=== PATIENT | female | born 1990 | race Caucasian/White ===

== ENCOUNTER → 2016-10-15 | Outpatient (CLI) | payer OTHER ==
[2016-10-15 21:17] LABS: Clam IgE <0.10 kU/L; Egg White IgE <0.10 kU/L; Peanut IgE <0.10 kU/L; Scallop IgE <0.10 kU/L; Soybean IgE <0.10 kU/L
[2016-10-16 13:49] LABS: Pork IgE Class CLASS 0
[2016-10-16 13:50] LABS: Banana IgE Class CLASS 0; Beef IgE <0.35 kU/L (<0.35); Beef IgE Class CLASS 0; Chicken IgE Class CLASS 0; Kiwi IgE <0.35 kU/L (<0.35); Kiwi IgE Class CLASS 0; Latex IgE Class CLASS 0; Yeast Bakers/Brew IgE <0.35 kU/L (<0.35); Yeast Bakers/Brew IgE Class CLASS 0
[2016-10-16 13:51] LABS: Avocado Class CLASS 0
[2016-10-19 12:42] LABS: Hazelnut IgG 2.3 mcg/mL (< 2.0)
[2016-10-22 13:21] LABS: Potato IgE <0.35 kU/L (<0.35); Potato IgE Class CLASS 0
[2016-10-22 13:22] LABS: Gluten IgE Class CLASS 0; Hazelnut IgE <0.35 kU/L (<0.35); Hazelnut IgE Class CLASS 0
== END | disposition home or self-care (01) ==
LOC: LABWHC1 14:16
PROVIDERS: ATTEND Otolaryngology
DX: J30.89 Other allergic rhinitis (principal)
CPT/HCPCS: 36415; 82785; 86001; 86003

== ENCOUNTER 2017-07-05 18:25 | Emergency (ER) | payer BC, OTHER ==
[2017-07-05 18:38] VITALS: BP 132/87; PULSE 96; RESP 18; TEMP 97.7
[2017-07-05] MEDS ORDERED: PROPARACAINE 0.5% OPHTH DROPS 15 ML BTL LEFT EYE STA (18:47)
[2017-07-05] MEDS ORDERED: TOBRAMYCIN 0.3% OPHTH DROPS 5 ML BTL LEFT EYE STA (19:12)
--- NOTE | 2017-07-05 19:12 | ED ---
Eye Problem HPI - General Chief complaint: Eye Problems Stated complaint: left eye pain Time Seen by Provider: 07/05/17 18:45 Source: patient Mode of arrival: ambulatory Limitations: no limitations - History of Present Illness Initial comments: 26-year-old female patient presents to the emergency department today for evaluation of left eye irritation and discomfort. Patient states that yesterday morning she started to have left eye redness and clear drainage. States she has felt like symptoms been scratching her eye. She states that when she woke this morning she did have green crusting over the eye that she had to wash off. She states that throughout the day today she'll occasionally feel like something scratching her eye however she constantly has irritation and a throbbing type feeling to the eye. She denies any fever or chills. Denies any upper respiratory symptoms. She states that her vision is mildly blurred on the left side. She denies any use of contact lenses. Patient denies any recent rash, fever, chills, shortness breath, chest pain, abdominal pain, nausea, vomiting, diarrhea, constipation, back pain, numbness, tingling, dizziness, weakness, hematuria, dysuria, urinary urgency, urinary frequency, headache, or any other complaints. - Related Data Home Medications Medication Instructions Recorded Confirmed Nitrofurantoin Macrocrystal 50 mg PO DAILY 05/28/15 07/05/17 [Macrodantin] Previous Rx's Medication Instructions Recorded traMADol HCl [Ultram] 50 mg PO Q6H PRN #20 tab 05/29/15 Allergies Allergy/AdvReac Type Severity Reaction Status Date / Time hazelnut Allergy Unknown Verified 07/05/17 18:39 sertraline [From Zoloft] Allergy Unknown Verified 07/05/17 18:38 Sulfa (Sulfonamide Allergy Rash/Hives Verified 07/05/17 18:38 Antibiotics) Review of Systems ROS Statement: Those systems with pertinent positive or pertinent negative responses have been documented in the HPI. ROS Other: All systems not noted in ROS Statement are negative. Past Medical History Past Medical History: No Reported History Additional Past Medical History / Comment(s): irregular heartbeat-PSVT, chronic migranes History of Any Multi-Drug Resistant Organisms: None Reported Past Surgical History: Tonsillectomy Additional Past Surgical History / Comment(s): wisdom Past Psychological History: No Psychological Hx Reported Smoking Status: Current every day smoker Past Alcohol Use History: Occasional Past Drug Use History: None Reported General Exam Limitations: no limitations General appearance: alert, in no apparent distress, other Eye exam: Present: PERRL, EOMI, conjunctival injection (left-sided conjunctival injection), other (Fluoroscein stain with Wood's lamp examination revealed no evidence for corneal abrasion or conjunctival abrasion. No evidence of foreign body with eversion of eyelid.). Absent: scleral icterus, periorbital swelling ENT exam: Present: normal exam, normal oropharynx Respiratory exam: Present: normal lung sounds bilaterally. Absent: respiratory distress, wheezes, rales, rhonchi, stridor Cardiovascular Exam: Present: regular rate, normal rhythm, normal heart sounds. Absent: systolic murmur, diastolic murmur, rubs, gallop, clicks Neurological exam: Present: alert, oriented X3, CN II-XII intact Psychiatric exam: Present: normal affect, normal mood Skin exam: Present: warm, dry, intact, normal color. Absent: rash Course Vital Signs 07/05/17 18:35 Temperature 97.7 F Pulse Rate 96 Respiratory 18 Rate Blood Pressure 132/87 O2 Sat by Pulse 100 Oximetry Medical Decision Making - Medical Decision Making 26-year-old female patient presented to the emergency department today with for evaluation of left eye irritation and redness. Did perform Wood's lamp examination with Fluoroscein stain which revealed no evidence for corneal abrasion or conjunctival abrasion. Patient did have improvement of symptoms with instillation of proparacaine. Eversion of eye lid did not reveal any evidence of foreign body or lesion. Patient symptoms are consistent with a conjunctivitis. We will treat her with tobramycin eyedrops to be administered 4 times daily to the left eye. She is instructed to follow-up with ophthalmology if her symptoms not improve over the next 1-2 days. She is instructed to return here immediately for any new, worsening, or concerning symptoms. She verbalizes understanding and agrees with this plan. Disposition Clinical Impression: Conjunctivitis Disposition: HOME SELF-CARE Condition: Good Instructions: Conjunctivitis (ED) Additional Instructions: Use antibiotic drops 1 drop to the left eye 4 times per day. Follow-up with ophthalmology for symptoms don't improve over the next 1-2 days. Return here immediately for any new, worsening, or concerning symptoms. Referrals: Javad Munoz DO [Primary Care Provider] - 1-2 days Time of Disposition: 19:12
== END 2017-07-05 19:27 | disposition home or self-care (01) ==
LOC: EC 18:25
DX: H10.9 Unspecified conjunctivitis (principal); F17.200 Nicotine dependence, unspecified, uncomplicated; Z88.2 Allergy status to sulfonamides; Z88.8 Allergy status to other drugs, medicaments and biological substances
CPT/HCPCS: 99283

== ENCOUNTER → 2017-08-06 | Outpatient (CLI) | payer BC ==
[2017-08-06 12:29] LABS: Basophils % (A) 0 %; CH 29.6; CHCM 31.7; Eosinophils # (A) 0.2 k/uL (0-0.7); Eosinophils % (A) 3 %; HCT 41.7 % (34.0-46.0); HDW 2.07; HGB 13.5 gm/dL (11.4-16.0); Luc # (Auto) 0.08; Luc % (Auto) 1; Lymphocytes # (A) 1.9 k/uL (1.0-4.8); Lymphocytes % (A) 31 %; MCH 30.3 pg (25.0-35.0); MCHC 32.3 g/dL (31.0-37.0); MCV 93.9 fL (80.0-100.0); Mean Platelet Volume 9.1; Monocytes # (A) 0.4 k/uL (0-1.0); Monocytes % (A) 6 %; Neutrophils # (A) 3.5 k/uL (1.3-7.7); Neutrophils % (A) 58 %; RBC 4.44 m/uL (3.80-5.40); RDW 13.9 % (11.5-15.5); WBC (Perox) 6.03
[2017-08-06 12:54] LABS: Calcium 10.6 mg/dL (8.4-10.2); Magnesium 1.9 mg/dL (1.6-2.3); Phosphorus 3.7 mg/dL (2.5-4.5)
== END | disposition home or self-care (01) ==
LOC: LABWHC1 11:31
PROVIDERS: ATTEND Psychiatry & Neurology Neurology
DX: R51 Headache (principal)
CPT/HCPCS: 36415; 82306; 82310; 82607; 82728; 83735; 84100; 84443; 85025

== ENCOUNTER 2022-12-29 10:41 | Emergency (ER) | payer BC ==
[2022-12-29 10:47] VITALS: RESP 18
[2022-12-29] MEDS ORDERED: SODIUM CHLORIDE 0.9% 1,000 ML IV ONE (11:45)
[2022-12-29 12:17] LABS: Basophils % (A) 0 %; Eosinophils # (A) 0.1 k/uL (0-0.7); Eosinophils % (A) 1 %; HCT 39.1 % (34.0-46.0); HGB 12.9 gm/dL (11.4-16.0); Lymphocytes % (A) 24 %; MCH 28.8 pg (25.0-35.0); MCHC 32.9 g/dL (31.0-37.0); MCV 87.5 fL (80.0-100.0); Mean Platelet Volume 8.2; Monocytes # (A) 0.3 k/uL (0-1.0); Monocytes % (A) 3 %; Neutrophils # (A) 5.8 k/uL (1.3-7.7); Neutrophils % (A) 70 %; Platelet Count 262 k/uL (150-450); RBC 4.47 m/uL (3.80-5.40); RDW 12.4 % (11.5-15.5); WBC 8.3 k/uL (3.8-10.6)
[2022-12-29 12:23] LABS: ALT 36 U/L (4-34); AST 27 U/L (14-36); African American GFR (CKD) >90 (>60 ml/min/1.73 sqM); Alkaline Phosphatase 56 U/L (38-126); Anion Gap 9 mmol/L; Blood Urea Nitrogen 13 mg/dL (7-17); Calcium 8.8 mg/dL (8.4-10.2); Carbon Dioxide 26 mmol/L (22-30); Chloride 103 mmol/L (98-107); Glucose 102 mg/dL (74-99); Non-African American GFR(CKD) >90 (>60 ml/min/1.73 sqM); Potassium 3.9 mmol/L (3.5-5.1); Sodium 138 mmol/L (137-145); Total Bilirubin 0.4 mg/dL (0.2-1.3); Total Protein 6.7 g/dL (6.3-8.2)
[2022-12-29 12:33] LABS: Appearance,Urine Turbid (Clear); Bacteria,Urine Many /hpf; Bilirubin,Urine Negative (Negative); Blood,Urine Large (Negative); Color,Urine Yellow; Glucose,Urine (UA) Negative (Negative); Ketones,Urine Negative (Negative); Leukocyte Esterase,Urine Large (Negative); Mucus,Urine Few /hpf; Nitrite,Urine Positive (Negative); PH, Urine 6.5 (5.0-8.0); Protein,Urine Trace (Negative); RBC,Urine 37 /hpf (0-5); Specific Gravity,Urine 1.016 (1.001-1.035); Squamous Epithelial Cell,Urine 6 /hpf (0-4); Urobilinogen,Urine <2.0 mg/dL (<2.0); WBC,Urine >182 /hpf (0-5)
--- NOTE | 2022-12-29 13:15 | ED ---
General Adult HPI - General Chief complaint: Abdominal Pain Stated complaint: poss uti Time Seen by Provider: 12/29/22 11:28 Source: patient, RN notes reviewed Mode of arrival: ambulatory Limitations: no limitations - History of Present Illness Initial comments: 32-year-old female with no significant past medical history presents to the emergency department with a chief complaint of dysuria. Patient reports increased dysuria and increased urinary frequency 2 weeks. She reports that she was seen at [facility] 2 weeks ago for same. She was given a prescription for Keflex for which she did not finish or take accordingly. She reports worsening symptoms that came back. She denies fevers, chills, nausea, vomiting, abdominal pain, vaginal bleeding, vaginal discharge, back pain. She does not express concerned for STDs at this time. - Related Data Home Medications Medication Instructions Recorded Confirmed tiZANidine HCL [Zanaflex] 2 mg PO HS 10/02/22 12/29/22 Omeprazole [PriLOSEC] 20 mg PO DAILY 12/29/22 12/29/22 Previous Rx's Medication Instructions Recorded Cephalexin [Keflex] 500 mg PO Q6HR #40 cap 12/29/22 Allergies Allergy/AdvReac Type Severity Reaction Status Date / Time hazelnut Allergy abd pain Verified 12/29/22 13:32 sertraline [From Zoloft] Allergy very Verified 12/29/22 13:32 depressed Sulfa (Sulfonamide Allergy Rash/Hives Verified 12/29/22 13:32 Antibiotics) cockroaches Allergy Severe Anaphylaxis Uncoded 12/29/22 10:47 Review of Systems ROS Statement: Those systems with pertinent positive or pertinent negative responses have been documented in the HPI. ROS Other: All systems not noted in ROS Statement are negative. Past Medical History Past Medical History: GERD/Reflux Additional Past Medical History / Comment(s): irregular heartbeat-PSVT, migranes., frequent uti's. History of Any Multi-Drug Resistant Organisms: None Reported Past Surgical History: Tonsillectomy Additional Past Surgical History / Comment(s): wisdom teeth Past Anesthesia/Blood Transfusion Reactions: No Reported Reaction Past Psychological History: No Psychological Hx Reported Smoking Status: Vaper Past Alcohol Use History: Occasional Past Drug Use History: None Reported - Past Family History Mother Family Medical History: No Reported History General Exam - General Exam Comments Initial Comments: General: Alert, in no acute distress Head: atraumatic normocephalic. Eyes PERRL, EOMI intact, mucous membranes moist Respiratory: Lungs clear to au rate scultation bilaterally Cardiovascular: Heart rate regular rate and rhythm Abdominal: Soft without guarding or rebound Extremities: Normal inspection with full range of motion and normal capillary refill Neuroogic: alert and oriented 3, CN II-XII intact, able to ambulate with steady gait Skin: warm dry and intact with normal color external exam is without any rashes, lesions, erythema. Vaginal canal with without discharge Cervical os is visualized and is closed. There is no cervical motion tenderness for abnormal adnexal tenderness. Pelvic exam performed with automatic grinding machine operator, Olivia, geoscience technician present. Limitations: no limitations Course Vital Signs 12/29/22 12/29/22 10:45 14:37 Temperature 97.7 F 98.0 F Pulse Rate 84 58 L Respiratory 18 18 Rate Blood Pressure 109/80 105/69 O2 Sat by Pulse 99 100 Oximetry - Reevaluation(s) Reevaluation #1: 12/29/22 14:25 Pelvic exam performed while Olivia geoscience technician present in the room. Patient tolerated well. Patient was offered to be treated prophylactically for STDs however she refused. Medical Decision Making - Medical Decision Making Was pt. sent in by a medical professional or institution (OFELIA Keith, PASTRY BAKER, urgent care, hospital, or retirement...) When possible be specific @ -No Did you speak to anyone other than the patient for history (EMS, parent, family, police, friend...)? What history was obtained from this source @ -No Did you review nursing and triage notes (agree or disagree)? Why? @ -I reviewed and agree with nursing and triage notes Were old charts reviewed (outside hosp., previous admission, EMS record, old EKG, old radiological studies, urgent care reports/EKG's, retirement records)? Report findings @ -No old charts were reviewed Differential Diagnosis (chest pain, altered mental status, abdominal pain women, abdominal pain men, vaginal bleeding, weakness, fever, dyspnea, syncope, headache, dizziness, GI bleed, back pain, seizure, CVA, palpatations, mental health, musculoskeletal)? @ -not applicable EKG interpreted by me (3pts min.). @ -As above X-rays interpreted by me (1pt min.). @ -None done CT interpreted by me (1pt min.). @ -None done U/S interpreted by me (1pt. min.). @ -None done What testing was considered but not performed or refused? (CT, X-rays, U/S, labs)? Why? @ -None What meds were considered but not given or refused? Why? @ -None Did you discuss the management of the patient with other professionals (professionals i.e. , PA, PASTRY BAKER, lab, RT, psych nurse, social media specialist, kiln cleaner, teacher, armoured corps officer, case checker)? Give summary @ -No Was smoking cessation discussed for >3mins.? @ -No Was critical care preformed (if so, how long)? @ -No Were there social determinants of health that impacted care today? How? (Homelessness, low income, unemployed, alcoholism, drug addiction, transportation, low edu. Level, literacy, decrease access to med. care, senior living, rehab)? @ -No Was there de-escalation of care discussed even if they declined (Discuss DNR or withdrawal of care, Hospice)? DNR status @ -No What co-morbidities impacted this encounter? (DM, HTN, Smoking, COPD, CAD, Cancer, CVA, ARF, Chemo, Hep., AIDS, mental health diagnosis, sleep apnea, morbid obesity)? @ -None Was patient admitted / discharged? Hospital course, mention meds given and route, prescriptions, significant lab abnormalities, going to OR and other pertinent info. @ -Discharged. This is a 32-year-old female who presents to the emergency department with a chief complaint of dysuria. Patient had thorough history and physical exam performed on the ED. He shouldn't remains afebrile. Heart rate regular rate and rhythm lungs clear to auscultation bilaterally, abdomen soft and nontender. exam unremarkable. Patient had lab work and imaging performed. WBCs 8.3 chemistry unremarkable BUNs 13, creatinine 0.58 Urinalysis reveals large amount of blood, positive nitrites, large amount of leukocyte esterase, greater than 182 wbc's with many wbc clumps I discussed the results in detail with the patient verbalized understanding and all questions were addressed. She will be discharged home at this time. She was offered prophylactic STD treatment as she has refractory UTI status post antibiotics. She was given 2 g of IV Rocephin while in the ED. She was given a prescription for Keflex. Urinary culture pending. She refused at the time of discharge. Return precautions were discussed at length. Discharged in stable condition. Case discussed with Dr. Arthur [facility] who agrees with plan of care At the time of discharge, gonorrhea chlamydia and Trichomonas results are pending. Results were reviewed 12/30/2022 at the time of completion of chart which revealed negative results. Undiagnosed new problem with uncertain prognosis? @ -No Drug Therapy requiring intensive monitoring for toxicity (Heparin, Nitro, Insulin, Cardizem)? @ -No Were any procedures done? @ -No Diagnosis/symptom? @ -dysuria - urinary tract infection Acute, or Chronic, or Acute on Chronic? @ -acute Uncomplicated (without systemic symptoms) or Complicated (systemic symptoms)? @ -uncomplicate d Side effects of treatment? @ -No Exacerbation, Progression, or Severe Exacerbation? @ -No Poses a threat to life or bodily function? How? (Chest pain, [place], GA, pneumonia, PE, COPD, DKA, ARF, appy, cholecystitis, CVA, Diverticulitis, Homicidal, Suicidal, threat to staff... and all critical care pts) @ low likeihood - Lab Data Result diagrams: 12/29/22 12:07 12/29/22 12:07 Lab Results 12/29/22 12/29/22 12/29/22 Range/Units 12:07 12:07 12:07 WBC 8.3 (3.8-10.6) k/uL RBC 4.47 (3.80-5.40) m/uL Hgb 12.9 (11.4-16.0) gm/dL Hct 39.1 (34.0-46.0) % MCV 87.5 (80.0-100.0) fL MCH 28.8 (25.0-35.0) pg MCHC 32.9 (31.0-37.0) g/dL RDW 12.4 (11.5-15.5) % Plt Count 262 (150-450) k/uL MPV 8.2 Neutrophils % 70 % Lymphocytes % 24 % Monocytes % 3 % Eosinophils % 1 % Basophils % 0 % Neutrophils # 5.8 (1.3-7.7) k/uL Lymphocytes # 2.0 (1.0-4.8) k/uL Monocytes # 0.3 (0-1.0) k/uL Eosinophils # 0.1 (0-0.7) k/uL Basophils # 0.0 (0-0.2) k/uL Sodium (137-145) mmol/L Potassium (3.5-5.1) mmol/L Chloride (98-107) mmol/L Carbon Dioxide (22-30) mmol/L Anion Gap mmol/L BUN (7-17) mg/dL Creatinine (0.52-1.04) mg/dL Est GFR (CKD-EPI)AfAm (>60 ml/min/1.73 sqM) Est GFR (CKD-EPI)NonAf (>60 ml/min/1.73 sqM) Glucose (74-99) mg/dL Calcium (8.4-10.2) mg/dL Total Bilirubin (0.2-1.3) mg/dL AST (14-36) U/L ALT (4-34) U/L Alkaline Phosphatase (38-126) U/L Total Protein (6.3-8.2) g/dL Albumin (3.5-5.0) g/dL Urine Color Yellow Urine Appearance Turbid H (Clear) Urine pH 6.5 (5.0-8.0) Ur Specific [place] 1.016 (1.001-1.035) Urine Protein Trace H (Negative) Urine Glucose (UA) Negative (Negative) Urine Ketones Negative (Negative) Urine Blood Large H (Negative) Urine Nitrite Positive H (Negative) Urine Bilirubin Negative (Negative) Urine Urobilinogen <2.0 (<2.0) mg/dL Ur Leukocyte Esterase Large H (Negative) Urine RBC 37 H (0-5) /hpf Urine WBC >182 H (0-5) /hpf Urine WBC Clumps Many H (None) /hpf Ur Squamous Epith Cells 6 H (0-4) /hpf Urine Bacteria Many H (None) /hpf Urine Mucus Few H (None) /hpf Urine HCG, Qual Not Detected (Not Detectd) Chlamydia Source Chlamydia DNA (PCR) (Neg,Equiv) N. gonorrhoeae Source N.gonorrhoeae DNA Probe (Neg,Equiv) Trichomonas Ag (Rapid) (Negative) 12/29/22 12/29/22 12/29/22 Range/Units 12:07 14:15 14:15 WBC (3.8-10.6) k/uL RBC (3.80-5.40) m/uL Hgb (11.4-16.0) gm/dL Hct (34.0-46.0) % MCV (80.0-100.0) fL MCH (25.0-35.0) pg MCHC (31.0-37.0) g/dL RDW (11.5-15.5) % Plt Count (150-450) k/uL MPV Neutrophils % % Lymphocytes % % Monocytes % % Eosinophils % % Basophils % % Neutrophils # (1.3-7.7) k/uL Lymphocytes # (1.0-4.8) k/uL Monocytes # (0-1.0) k/uL Eosinophils # (0-0.7) k/uL Basophils # (0-0.2) k/uL Sodium 138 (137-145) mmol/L Potassium 3.9 (3.5-5.1) mmol/L Chloride 103 (98-107) mmol/L Carbon Dioxide 26 (22-30) mmol/L Anion Gap 9 mmol/L BUN 13 (7-17) mg/dL Creatinine 0.58 (0.52-1.04) mg/dL Est GFR (CKD-EPI)AfAm >90 (>60 ml/min/1.73 sqM) Est GFR (CKD-EPI)NonAf >90 (>60 ml/min/1.73 sqM) Glucose 102 H (74-99) mg/dL Calcium 8.8 (8.4-10.2) mg/dL Total Bilirubin 0.4 (0.2-1.3) mg/dL AST 27 (14-36) U/L ALT 36 H (4-34) U/L Alkaline Phosphatase 56 (38-126) U/L Total Protein 6.7 (6.3-8.2) g/dL Albumin 4.0 (3.5-5.0) g/dL Urine Color Urine Appearance (Clear) Urine pH (5.0-8.0) Ur Specific [place] (1.001-1.035) Urine Protein (Negative) Urine Glucose (UA) (Negative) Urine Ketones (Negative) Urine Blood (Negative) Urine Nitrite (Negative) Urine Bilirubin (Negative) Urine Urobilinogen (<2.0) mg/dL Ur Leukocyte Esterase (Negative) Urine RBC (0-5) /hpf Urine WBC (0-5) /hpf Urine WBC Clumps (None) /hpf Ur Squamous Epith Cells (0-4) /hpf Urine Bacteria (None) /hpf Urine Mucus (None) /hpf Urine HCG, Qual (Not Detectd) Chlamydia Source Cervix Chlamydia DNA (PCR) Negative (Neg,Equiv) N. gonorrhoeae Source Cervix N.gonorrhoeae DNA Probe Negative (Neg,Equiv) Trichomonas Ag (Rapid) Negative (Negative) Disposition Clinical Impression: Dysuria, Urinary tract infection Disposition: HOME SELF-CARE Condition: Stable Additional Instructions: Please finish the course of antibiotics as prescribed Please return to the nearest emergency department if fever, nausea, vomiting, dysuria persist Prescriptions: Cephalexin [Keflex] 500 mg PO Q6HR #40 cap Is patient prescribed a controlled substance at d/c from ED?: No Referrals: Silvia Bernard DO [Primary Care Provider] - 1-2 days Devonte Nash MD [STAFF PHYSICIAN] - 1-2 days Time of Disposition: 13:15
[2022-12-29 14:44] VITALS: BP 105/69; PULSE 58; TEMP 98
[2022-12-30 13:30] LABS: C. trachomatis,PCR Negative (Neg,Equiv); Chlamydia trachomatis Source Cervix; N. gonorrhoeae,PCR Negative (Neg,Equiv); Neisseria Source Cervix
== END 2022-12-29 14:44 | disposition home or self-care (01) ==
LOC: EC 10:41
DX: N39.0 Urinary tract infection, site not specified (principal); K21.9 Gastro-esophageal reflux disease without esophagitis; F17.290 Nicotine dependence, other tobacco product, uncomplicated; Z79.899 Other long term (current) drug therapy; Z88.1 Allergy status to other antibiotic agents; Z88.2 Allergy status to sulfonamides; Z88.8 Allergy status to other drugs, medicaments and biological substances
CPT/HCPCS: 36415; 80053; 85025; 81001; 81025; 87808; 87491; 87591; 99284; 96365; 96361; J0696

== ENCOUNTER 2024-04-06 22:25 | Outpatient (CLI) | payer BC | END 2024-04-06 22:58 | LOC: FBPOP 22:25 | PROVIDERS: ATTEND Obstetrics & Gynecology Obstetrics | CPT/HCPCS: 59025; 99213 ==

== ENCOUNTER 2024-04-10 11:17 | Outpatient (CLI) | payer BC ==
[2024-04-10 12:47] VITALS: BP 125/84; PULSE 93; RESP 18; TEMP 97.4
--- NOTE | 2024-04-29 09:10 | P.MSEPDOC ---
Presenting Problems - Arrival Data Date of Arrival on Unit: 04/10/24 Time of Arrival on Unit: 11:20 Mode of Transport: Ambulatory - Complaint OB-Reason for Admission/Chief Complaint: Possible Onset of Labor Comment: cramping since 0600 irregularly Medical History - Information : 1 Para: 0 Term: 0 : 0 Abortions: Spontaneous or Elective: 0 Number of Living Children: 0 - Gestational Age Gestational Age by MORRIS (wks/days): 39 Weeks and 4 Days Review of Systems - Review of Systems Constitutional: No problems Breast: No problems ENT: No problems Cardiovascular: Irregular heartbeat Respiratory: No problems Gastrointestinal: No problems Genitourinary: No problems Musculoskeletal: No problems Neurological: No problems Skin: No problems Comment: hsitory of SVT's 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 Vital Signs - Temperature Temperature: 97.4 F Temperature Source: Temporal Artery Scan - Pulse Right Brachial Pulse Rate: 93 Pulse Assessment Method: Automatic Cuff - Respirations Respiratory Rate: 18 Oxygen Delivery Method: Room Air O2 Sat by Pulse Oximetry: 97 - Blood Pressure Right Arm Blood Pressure: 125/84 Blood Pressure Mean: 97 Blood Pressure Source: Automatic Cuff Medical Screen Scoring - Cervical Exam Dilation (cm): 0 Effacement (%): 0 Station: -2 Membranes: Intact - Uterine Contractions Frequency From (mins): 8 Frequency To (mins): 13 Duration From (seconds): 50 Duration To (seconds): 70 Intensity: Mild Resting: Soft to palpation - Assessment - Baby A Baseline FHR: 135 Heart Rate - NICHD Category: Category I (Normal) NST: Reactive Physician Notification - Physician Notified Physician Notified Date: 04/10/24 Physician Notified Time: 12:25 Physician: Hemanth Jacobson Order Received: Yes - Notification Comment Comment: D/C Home Maternal Triage Index - Maternal Triage Index Presenting for scheduled procedure w/no complaint: No - Stat/Priority 1 Stat Priority 1: No - Urgent/Priority 2 Urgent Priority 2: No - Prompt/Priority 3 Prompt Priority 3: No - Non-Urgent/Priority 4 Non-Urgent Priority 4: Yes Criteria Met for Priority 4: contractions every 8-13 minutes that are mild Disposition - Disposition OB Disposition: Discharge to home Discharge Date: 04/10/24 Discharge Time: 12:30 I agree with the RN Medical Screening Exam: Yes Physician's MSE Comment: I have neither seen nor examined the patient. Case reviewed; plan agreed upon as documented in EMR&OBIX.: Yes Diagnosis: RELATED CONDITIONS, UNSPECIFIED, THIRD TRIMESTER
== END 2024-04-10 12:30 | disposition home or self-care (01) ==
LOC: FBPOP 11:17 → MERGE 11:17 → FBPOP 12:30
PROVIDERS: ATTEND Obstetrics & Gynecology
CPT/HCPCS: 59025; 99213

== ENCOUNTER 2024-04-13 16:00 | Inpatient (IN) | payer BC ==
[2024-04-13] MEDS ORDERED: BUTORPHANOL 2 MG/ML 1 ML VIAL IV PRN (16:24)
[2024-04-13] MEDS: DINOPROSTONE 10 MG INSERT.ER VAGINAL ONE (16:45)
[2024-04-14] MEDS ORDERED: TERBUTALINE 1 MG/ML VIAL SQ PRN (06:00)
[2024-04-14] MEDS ORDERED: OXYTOCIN 10 UNIT/ML 1 ML VIAL IM PRN (06:00)
[2024-04-14] MEDS ORDERED: METHYLERGONOVINE 0.2 MG/ML 1 ML AMP IM PRN (06:00)
[2024-04-14] MEDS ORDERED: miSOPROStoL 200 MCG TAB PO PRN (06:00)
[2024-04-14] MEDS ORDERED: TRANEXAMIC 1,000 MG/100ML-NACL 1,000 MG in EMPTY BAG 1 BAG IV PRN (06:00)
[2024-04-14] MEDS ORDERED: miSOPROStoL 200 MCG TAB RECTAL PRN (06:00)
[2024-04-14] MEDS ORDERED: LIDOCAINE 0.5% (PF) 5 MG/ML (50 ML SDV) SQ PRN (06:00)
[2024-04-14] MEDS ORDERED: CARBOPROST TROMETHAMINE 250 MCG/ML 1 ML AMP IM PRN (06:00)
[2024-04-14] MEDS: OXYTOCIN 30 UNITS/500 ML NS 30 UNIT in SALINE 1 500ML.BAG IV SCH (06:04)
[2024-04-14] MEDS: LACTATED RINGERS 1,000 ML IV SCH (06:04)
[2024-04-14 06:40] LABS: Basophils % (A) 0 %; Eosinophils # (A) 0.1 k/uL (0-0.7); Eosinophils % (A) 1 %; HCT 30.6 % (34.0-46.0); HGB 10.1 gm/dL (11.4-16.0); Lymphocytes # (A) 2.1 k/uL (1.0-4.8); Lymphocytes % (A) 17 %; MCH 26.3 pg (25.0-35.0); MCHC 32.9 g/dL (31.0-37.0); MCV 79.9 fL (80.0-100.0); Mean Platelet Volume 8.8; Monocytes # (A) 0.6 k/uL (0-1.0); Monocytes % (A) 5 %; Neutrophils # (A) 9.2 k/uL (1.3-7.7); Neutrophils % (A) 75 %; Platelet Count 307 k/uL (150-450); RBC 3.83 m/uL (3.80-5.40); RDW 15.2 % (11.5-15.5); WBC 12.2 k/uL (3.8-10.6)
--- NOTE | 2024-04-14 07:47 | P.HPOB ---
History of Present Illness H&P Date: 04/13/24 Chief Complaint: Induction of labor 33 year old presents at 40 weeks for induction of labor. Her cervix is closed, 60, -1. She is not magdiel. heart tones category 1. Review of Systems All systems: negative Constitutional: Denies chills, Denies fever Eyes: denies blurred vision, denies pain Ears, nose, mouth and throat: Denies headache, Denies sore throat Cardiovascular: Denies chest pain, Denies shortness of breath Respiratory: Denies cough Gastrointestinal: Denies abdominal pain, Denies diarrhea, Denies nausea, Denies vomiting Genitourinary: Denies dysuria, Denies hematuria Musculoskeletal: Denies myalgias Integumentary: Denies pruritus, Denies rash Neurological: Denies numbness, Denies weakness Psychiatric: Denies anxiety, Denies depression Endocrine: Denies fatigue, Denies weight change Past Medical History Past Medical History: GERD/Reflux Additional Past Medical History / Comment(s): irregular heartbeat-PSVT, migranes., frequent uti's. History of Any Multi-Drug Resistant Organisms: None Reported Past Surgical History: Tonsillectomy Additional Past Surgical History / Comment(s): wisdom teeth Past Anesthesia/Blood Transfusion Reactions: No Reported Reaction Past Psychological History: No Psychological Hx Reported Smoking Status: Former smoker Past Alcohol Use History: Occasional Additional Past Alcohol Use History / Comment(s): quit smoking cigarettes in 2019, quit vaping Aug 2023. Past Drug Use History: None Reported - Past Family History Mother Family Medical History: No Reported History Additional Family Medical History / Comment(s): Degenerative disk disease Medications and Allergies Allergies Allergy/AdvReac Type Severity Reaction Status Date / Time hazelnut Allergy abd pain Verified 04/13/24 16:23 sertraline [From Zoloft] Allergy very Verified 04/13/24 16:23 depressed Sulfa (Sulfonamide Allergy Rash/Hives Verified 04/13/24 16:23 Antibiotics) cockroaches Allergy Severe Anaphylaxis Uncoded 04/13/24 16:23 Exam Osteopathic Statement: *. No significant issues noted on an osteopathic structural exam other than those noted in the History and Physical/Consult. Vital Signs Temp Pulse Resp BP Pulse Ox 04/13/24 16:22 97.1 F L 93 18 150/79 97 Intake and Output 04/13/24 04/14/24 04/14/24 22:59 06:59 14:59 Other: # Voids 1 2 Weight 87.997 kg Heart: Regular rate and rhythm Lungs: Clear to auscultation bilaterally Abdomen: Soft, nontender Extremities: Negative Homans sign Results Result Diagrams: 04/14/24 05:51 Abnormal Lab Results - Last 24 Hours (Table) 04/14/24 Range/Units 05:51 WBC 12.2 H (3.8-10.6) k/uL Hgb 10.1 L (11.4-16.0) gm/dL Hct 30.6 L (34.0-46.0) % MCV 79.9 L (80.0-100.0) fL Neutrophils # 9.2 H (1.3-7.7) k/uL Assessment and Plan (1) Elective induction of labor planned Current Visit: Yes Status: Acute Code(s): [id number] - SNOMED Code(s): 049998327 Plan: 1. cervidil tonight and amniotomy and pitocin in the morning.
[2024-04-14] MEDS ORDERED: fentaNYL (PF) 50 MCG/ML 5 ML AMP ONE (09:13)
[2024-04-14] MEDS ORDERED: ROPIVACAINE 5 MG/ML 30 ML VIAL ONE (09:13)
[2024-04-14] MEDS ORDERED: SODIUM CHLORIDE 0.9% 250 ML BAG ONE (09:13)
[2024-04-14] MEDS ORDERED: AMPICILLIN 1,000 MG in SODIUM CHLORIDE 0.9% 50 ML IVPB SCH (10:00)
[2024-04-14] MEDS ORDERED: diphenhydrAMINE 50 MG/ML 1 ML VIAL IVP PRN ×2 (17:27)
[2024-04-14] MEDS ORDERED: BENZOCAINE/MENTHOL SPRAY 1 GM/SPRAY AEROSOL TOPICAL PRN (17:27)
[2024-04-14] MEDS ORDERED: SIMETHICONE 80 MG CHEWABLE PO PRN (17:27)
[2024-04-14] MEDS ORDERED: HYDROCORTISONE 2.5% RECTAL CREAM 30 GM TUBE RECTAL PRN (17:27)
[2024-04-14] MEDS ORDERED: diphenhydrAMINE 50 MG CAP PO PRN (17:27)
[2024-04-14] MEDS ORDERED: LANOLIN CREAM 1 GM TUBE TOPICAL PRN (17:27)
[2024-04-14] MEDS ORDERED: diphenhydrAMINE 25 MG CAP PO PRN (17:27)
[2024-04-14] MEDS ORDERED: ZOLPIDEM 5 MG TAB PO PRN (17:27)
[2024-04-14] MEDS: AMPICILLIN 2,000 MG in SODIUM CHLORIDE 0.9% 100 ML IVPB ONE (18:07)
[2024-04-14] MEDS: IBUPROFEN 600 MG TAB PO PRN (18:09)
[2024-04-14] MEDS: SENNOSIDES-DOCUSATE SODIUM 1 EACH TAB PO SCH (21:21)
[2024-04-15 07:21] LABS: Basophils % (A) 0 %; Eosinophils # (A) 0.1 k/uL (0-0.7); Eosinophils % (A) 0 %; HCT 23.7 % (34.0-46.0); Hypochromasia Moderate; Lymphocytes # (A) 1.8 k/uL (1.0-4.8); Lymphocytes % (A) 14 %; MCHC 32.1 g/dL (31.0-37.0); Mean Platelet Volume 8.7; Monocytes # (A) 0.6 k/uL (0-1.0); Monocytes % (A) 5 %; Neutrophils % (A) 79 %; Platelet Count 257 k/uL (150-450); RBC 2.93 m/uL (3.80-5.40); RDW 15.2 % (11.5-15.5); WBC 12.7 k/uL (3.8-10.6)
[2024-04-15 07:55] LABS: HGB 7.6 gm/dL (11.4-16.0)
--- NOTE | 2024-04-15 08:36 | P.PROBDLV ---
Vaginal Delivery Note - . Vaginal Delivery Note: 33 year old presents at 40 weeks for induction of labor. Her cervix is closed, 60, -1. She is not magdiel. heart tones category 1. Cervidil was placed and she was uncomfortable throughout the night. In the morning she was 1 cm dilated, 70% effaced, -1 station. She is magdiel every 2-5 minutes. Pitocin was started and amniotomy performed at 7:35 AM, clear fluid noted. Patient progressed and did get an epidural. Her cervix was completely dilated at 10:49 AM. She pushed, and delivered a viable male infant over intact perineum under epidural anesthesia at 12 PM. Head delivered OA, nuchal cord 1 easily reduced, anterior shoulder delivered gentle downward guidance for by posterior shoulder and rest of body. Nose and mouth bulb suctioned, cord clamped cut, infant placed mother's abdomen. Apgars 9, 9, weight 8 lbs. 10 oz. Placenta delivered spontaneously, intact with three-vessel cord at 1204. Vagina, cervix, perineum inspected. Right labial laceration and a second-degree midline laceration were repaired with 2-0 Vicryl and 3-0 Vicryl. Estimated blood loss 250 mL. Mother and baby in stable condition.
--- NOTE | 2024-04-15 08:44 | P.PNOBGVD ---
Subjective - Subjective Principal diagnosis: S/P NVD PPD #1 Interval history: Patient seen and examined. She had quite a bit of perineal/labial swelling and did get dizzy with standing. Therefore, she had a catheter through the night. Her hgb is now 7.6. Her lochia is decreasing. Catheter removed this morning but she has not gotten up to use the restroom yet. Patient reports: Reports appetite normal, Reports pain well controlled [place]: doing well Objective - Latest Vital Signs Latest vital signs: Vital Signs Temp Pulse Resp BP BP Pulse Ox 04/15/24 07:54 98.2 F 70 18 129/81 04/15/24 00:00 98.1 F 70 16 128/85 99 04/14/24 21:00 98.6 F 70 16 112/78 99 04/14/24 17:05 98.2 F 86 16 119/71 99 04/14/24 14:45 77 16 96/51 100 04/14/24 14:15 90 16 112/66 04/14/24 14:00 93 16 113/63 04/14/24 13:45 105 H 16 114/70 04/14/24 13:30 97.4 F L 104 H 16 116/64 04/14/24 13:15 114 H 16 114/56 04/14/24 13:00 110 H 16 118/62 04/14/24 12:45 104 H 20 134/75 04/14/24 12:30 110 H 16 127/76 04/14/24 12:15 117 H 16 135/86 Intake and Output 04/14/24 04/15/24 04/15/24 22:59 06:59 14:59 Output Total 1100 1800 Balance -1100 -1800 Output: Urine 1100 1800 Uretheral (Izquierdo) 1100 Other: Voiding Method Indwelling Catheter # Voids 0 - Exam Lungs: bilateral: normal Chest: Normal S1, Normal S2 Extremities: Present: normal Abdomen: Present: normal appearance, soft Uterus: Present: normal, firm - Labs Labs: Abnormal Lab Results - Last 24 Hours (Table) 04/15/24 Range/Units 07:06 WBC 12.7 H (3.8-10.6) k/uL RBC 2.93 L (3.80-5.40) m/uL Hgb 7.6 L D (11.4-16.0) gm/dL Hct 23.7 L (34.0-46.0) % Neutrophils # 10.0 H (1.3-7.7) k/uL Assessment and Plan (1) Elective induction of labor planned Current Visit: Yes Status: Resolved Code(s): [id number] - SNOMED Code(s): 078851265 (2) Status post normal vaginal delivery Current Visit: Yes Status: Acute Code(s): [id number] - SNOMED Code(s): 591253085 Plan: 1. monitor bleeding 2. try to ambulate with help this am. If symptomatic may need blood transfusion.
[2024-04-16] MEDS: ACETAMINOPHEN TAB 325 MG TAB PO PRN (03:30)
[2024-04-16 08:01] VITALS: RESP 17
[2024-04-16 08:49] LABS: Basophils % (A) 0 %; Eosinophils # (A) 0.3 k/uL (0-0.7); Eosinophils % (A) 2 %; HCT 22.5 % (34.0-46.0); HGB 7.4 gm/dL (11.4-16.0); Hypochromasia Slight; Lymphocytes % (A) 14 %; MCH 26.5 pg (25.0-35.0); MCV 80.3 fL (80.0-100.0); Mean Platelet Volume 8.3; Monocytes # (A) 0.5 k/uL (0-1.0); Monocytes % (A) 4 %; Neutrophils # (A) 11.3 k/uL (1.3-7.7); Neutrophils % (A) 79 %; Platelet Count 277 k/uL (150-450); RDW 15.6 % (11.5-15.5); WBC 14.3 k/uL (3.8-10.6)
[2024-04-16] MEDS: FERROUS SULFATE 325 MG TAB PO SCH (09:11)
--- NOTE | 2024-04-16 10:22 | P.DS ---
Providers Date of admission: 04/13/24 16:00 Expected date of discharge: 04/16/24 Attending physician: Cheyanne Hooks Primary care physician: Stated None - Discharge Diagnosis(es) (1) Term Current Visit: Yes Status: Acute (2) Obstetrical laceration, second degree Current Visit: Yes Status: Acute (3) Status post normal vaginal delivery Current Visit: Yes Status: Acute (4) Elective induction of labor planned Current Visit: Yes Status: Resolved Hospital Course: 33-year-old 1 now para 1 that presented to labor and delivery on 04/13 for scheduled Cervidil induction of labor. Patient had been receiving routine care which was complicated by a marginal cord insertion noted at 20- week ultrasound. For full details in this patient please the dictated history and physical. Patient was admitted to labor and delivery for Cervidil induction of labor. Patient made good progress with her Cervidil and Pitocin augmentation of labor was started after Cervidil was removed. Amniotomy was performed and clear fluid was obtained. Patient progressed quickly through labor, she did request an epidural for analgesia. Patient progressed to complete began pushing and had a normal spontaneous vaginal delivery of a viable male at 1200, weight of 8 pounds 10.4 ounces, Apgars of 9 and 9 at 1 and 5 minutes respectively. Patient did sustain a second-degree midline laceration that was repaired in the usual fashion with 3-0 Vicryl. Patient did have acute blood loss anemia noted on day #1, hemoglobin dropping from 10.7-7.6. Patient is asymptomatic. Hemoglobin this morning is stable at 7.4. Patient is ambulating without shortness of breath or dizziness. Patient was able to shower without difficulty. Lochia is noted to be minimal to moderate. She is breast and bottlefeeding. Patient Condition at Discharge: Good Plan - Discharge Summary Follow up Appointment(s)/Referral(s): Cheyanne Hooks DO [Doctor of Osteopathic Medicine] - 6 Weeks Patient Instructions/Handouts: Vaginal Delivery (DC), Vaginal Delivery (GEN) Activity/Diet/Wound Care/Special Instructions: [id number]-jun-[id number] ibuprofen 600 mg or 3 tablets every 6 hours as needed for pain. Patient is heading back to the [facility] and she is urged to stop every 2-3 hours to walk around empty her bladder. Risks of DVT discussed. Routine visit to be scheduled for [address] Hooks. No tub baths or intercourse for 6 weeks. Discharge Disposition: HOME SELF-CARE Plan of Treatment: Jess follow up appointment 05/25/2024 9:30 AM
[2024-04-16 15:10] VITALS: BP 127/85; PULSE 65; TEMP 98
== END 2024-04-16 15:25 | disposition home or self-care (01) | DRG 806 ==
LOC: 4FBP 16:00 → MERGE 17:00 → 4FBP 20:47
PROVIDERS: ADMIT Obstetrics & Gynecology; ATTEND Obstetrics & Gynecology
PROC: 3E0DXGC Introduction of Other Therapeutic Substance into Mouth and Pharynx, External Approach (ICD-10-PCS; principal; 2024-04-13)
PROC: 10907ZC Drainage of Amniotic Fluid, Therapeutic from Products of Conception, Via Natural or Artificial Opening (ICD-10-PCS; principal; 2024-04-13)
PROC: 10E0XZZ Delivery of Products of Conception, External Approach (ICD-10-PCS; principal; 2024-04-13)
PROC: 0KQM0ZZ Repair Perineum Muscle, Open Approach (ICD-10-PCS; principal; 2024-04-13)
DX: O69.81X0 Labor and delivery complicated by cord around neck, without compression, not applicable or unspecified (principal); D62 Acute posthemorrhagic anemia; Z37.0 Single live birth; O70.1 Second degree perineal laceration during delivery; O90.81 Anemia of the puerperium; Z3A.40 40 weeks gestation of pregnancy; Z87.440 Personal history of urinary (tract) infections; Z87.891 Personal history of nicotine dependence; Z88.2 Allergy status to sulfonamides; Z88.8 Allergy status to other drugs, medicaments and biological substances

== ENCOUNTER → 2024-09-16 | Outpatient (CLI) | payer OTHER ==
[2024-09-16 11:31] VITALS: BP 114/76; PULSE 92; RESP 17; TEMP 97.9
--- NOTE | 2024-09-16 12:03 | P.GSCN ---
History of Present Illness Consult date: 09/16/24 Reason for Consult: mass left breast Requesting physician: Nicolasa Valentino History of present illness: Amalia is a 34 year old female who is seen in consultation for Elva Valentino. She underwent a left breast ultrasound on 06-23-24. This showed a 3.8 by 3.3 by 2.3 cm lesion. The patient noted the lesion approximately 8 months ago in the left breast in the lateral aspect. She was about 3 months when she noted the area. The lesion has increased in size since that time. Patient at the present time. 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 We don't have the pathology report or slides. She is not complaining of any other lumps masses or nodules of concern. She is breast-feeding. She has not had any surgery on her breast, only the biopsy of the lesion in the left breast in October 2023. She is not complaining of any recent trauma or infection to the breast. Patient states the lesion in the left breast was monitored and has increased at least a centimeter in size by her report to her since it was first noted. caffeine: les than 1 can of pop/day nicotine: none chocolate; occasional BCP: used them for about 1 year hormones: none Note Elva GILBERT reviewed from 06-20-24 Family History: paternal grandfather bladder cancer metastatic maternal grandfather: liver or pancreatic cancer Hormonal History: menarche: 16 age at : 33, breast fed: yes still breast feeding she has only had one periods since giving Surgical HIstory: Tonsils [place] teeth Medical history: PSVT (ventricular tachy) migraines GERD Social History: nicotine: stopped 2020 used to smoke 1/2 PPD alcohol: occasional, 2 times a month drugs: none Review of Systems - Constitutional Denies fever, Denies weight loss - EENT Eyes: denies blurred vision Ears: deny: decreased hearing, tinnitus Ears, nose, mouth and throat: Denies dysphagia - Breasts bilateral: as per HPI - Cardiovascular Denies chest pain, Denies shortness of breath - Respiratory Denies cough, Denies 7 - Gastrointestinal Reports as per HPI - Genitourinary Genitourinary: Denies dysuria, Denies hematuria Menstruation: Reports as per HPI - Musculoskeletal Reports as per HPI - Integumentary Denies rash, Denies unusual bruising - Neurological Denies headaches, Denies syncope - Psychiatric Reports as per HPI - Endocrine Reports as per HPI - Hematologic/Lymphatic Reports as per HPI - Allergic/Immunologic Reports seasonal allergies Past Medical History Past Medical History: GERD/Reflux Additional Past Medical History / Comment(s): irregular heartbeat-PSVT, migranes., frequent uti's. History of Any Multi-Drug Resistant Organisms: None Reported Past Surgical History: Tonsillectomy Additional Past Surgical History / Comment(s): wisdom teeth Past Anesthesia/Blood Transfusion Reactions: No Reported Reaction Past Psychological History: No Psychological Hx Reported Smoking Status: Former smoker Past Alcohol Use History: Occasional Additional Past Alcohol Use History / Comment(s): quit smoking cigarettes in 2019, quit vaping Aug 2023. Past Drug Use History: None Reported - Past Family History Mother Family Medical History: No Reported History Additional Family Medical History / Comment(s): Degenerative disk disease Medications and Allergies Home Medications Medication Instructions Recorded Confirmed Type Famotidine [Pepcid] 20 mg PO DAILY 09/16/24 09/16/24 History Allergies Allergy/AdvReac Type Severity Reaction Status Date / Time hazelnut Allergy abd pain Verified 09/16/24 11:26 sertraline [From Zoloft] Allergy very Verified 09/16/24 11:26 depressed Sulfa (Sulfonamide Allergy Rash/Hives Verified 09/16/24 11:26 Antibiotics) cockroaches Allergy Severe Anaphylaxis Uncoded 09/16/24 11:26 Surgical - Exam Vital Signs Temp Pulse Resp BP Pulse Ox 97.9 F 92 17 114/76 98 09/16/24 11:28 09/16/24 11:28 09/16/24 11:28 09/16/24 11:28 09/16/24 11:28 - General no distress - Eyes normal ocular movement - Neck trachea midline - Respiratory normal respiratory effort - Cardiovascular Rhythm: regular Heart Sounds: normal: S1, S2 - Integumentary normal turgor - Neurologic no disoriented, no combative - Musculoskeletal normal gait - Psychiatric oriented to time, oriented to person, oriented to place, speech is normal, memory intact Breast Exam: BRA: sports extra large inspection: Bilateral engorged breast secondary to the fact patient is breast- feeding Palpation: Right breast: Breast is full but no discrete dominant masses or nodules of concern Right axilla: No adenopathy of concern Left breast: Breast is full, in the 6 to 7 o'clock position there is approximately a 4 cm firm mass which is freely mobile Left axilla: No adenopathy of concern Results We have reports on the left breast ultrasound but they have not seen the actual radiographs and we have verbal report on the pathology on the biopsy of the left breast Assessment and Plan Assessment: Impression: Left breast mass in a 34-year-old patient who is breast-feeding Obtain pathology results Obtain radiographs to personally review The patient states that the lesion has increased in size Plan: We have discussed surgical removal of the lesion in the left breast secondary to the fact that it is increasing in size, however the patient is breast-feeding and would prefer to continue breast-feeding at this time. We would like to see the pathology report on the lesion in the left breast before further recommendation is made. If this is indeed a fibroadenoma the fact that it is increasing in size we would still like to remove it. The patient does not want to stop breast-feeding therefore we would follow this conservatively by ultrasound to assure that it is not getting larger. If it continues to get larger then the patient should stop breast-feeding and the should be removed. If this is stable over the next several months then we would recommend removal after she stops breast-feeding. There are mitigating factors as to whether the patient would like to continue breast-feeding. She is presently in the process of a divorce and if she stops breast-feeding she will have to share custody of the baby with her who is felt to be unsafe. We have discussed that her agricultural equipment operator is Dr. Hooks I will talk to Dr. Hooks and and discussed whether or not surgery would be reasonable while she is breast-feeding. obtain pathology report form [place] obtain all ultrasound films ([facility]) discuss with Dr. Hooks Patient understands that in a enlarging breast mass that I cannot promise there is not a malignant component to this. However at this time she has declined surgical resection secondary to the fact that she would like to continue breast- feeding. Follow up in 2 weeks. Time spent reviewing records, examining patient, and discussing and planning treatment plan. 35 minutes
== END ==
LOC: WWCWWP 10:46
PROVIDERS: ATTEND Surgery
DX: N63.20 Unspecified lump in the left breast, unspecified quadrant (principal); F17.210 Nicotine dependence, cigarettes, uncomplicated; Z91.018 Allergy to other foods; Z88.8 Allergy status to other drugs, medicaments and biological substances; Z91.038 Other insect allergy status; Z88.2 Allergy status to sulfonamides

== ENCOUNTER 2024-12-22 22:48 | Emergency (ER) | payer OTHER ==
[2024-12-22 22:56] VITALS: BP 127/86; PULSE 78; RESP 18; TEMP 97.7
[2024-12-22] MEDS: ACETAMINOPHEN TAB 500 MG TAB PO STA (23:18)
--- NOTE | 2024-12-22 23:42 | XR ---
EXAMINATION TYPE: XR tibia fibula RT DATE OF EXAM: 12/22/2024 11:28 PM COMPARISON: None. CLINICAL INDICATION: Female, 34 years old with history of pain, pain, heard pop below knee, rolled le g TECHNIQUE: 2 view(s) obtained. FINDINGS: No acute fracture or dislocation evident. Joint spaces are preserved. Soft tissues appear normal. Follow up exams can be performed 7-10 days from acute trauma for continued pain IMPRESSION: 1. No acute osseous abnormality right tibia and fibula [facility], Workstation: [facility], 12/22/2024 11:40 PM
--- NOTE | 2024-12-22 23:54 | ED ---
Lower Extremity Injury HPI - General Chief Complaint: Extremity Injury, Lower Stated Complaint: R Leg Injury Time Seen by Provider: 12/22/24 23:08 Source: patient Mode of arrival: wheelchair Limitations: no limitations - History of Present Illness Initial Comments: 34-year-old female presenting with chief complaint of right lower leg pain. Patient reports that a bird was attacking her and she was running away when she felt a pop in her leg. She is having pain in her upper calf. Worse with weightbearing. She is still able to bend and flex the foot but has pain with doing so. No pain in the foot or heel. No numbness or tingling. - Related Data Home Medications Medication Instructions Recorded Confirmed Famotidine [Pepcid] 20 mg PO DAILY 09/16/24 09/16/24 Allergies Allergy/AdvReac Type Severity Reaction Status Date / Time hazelnut Allergy abd pain Verified 12/22/24 22:56 sertraline [From Zoloft] Allergy very Verified 12/22/24 22:56 depressed Sulfa (Sulfonamide Allergy Rash/Hives Verified 12/22/24 22:56 Antibiotics) cockroaches Allergy Severe Anaphylaxis Uncoded 12/22/24 22:56 Review of Systems ROS Statement: Those systems with pertinent positive or pertinent negative responses have been documented in the HPI. ROS Other: All systems not noted in ROS Statement are negative. Past Medical History Past Medical History: GERD/Reflux Additional Past Medical History / Comment(s): irregular heartbeat-PSVT, migranes., frequent uti's. History of Any Multi-Drug Resistant Organisms: None Reported Past Surgical History: Tonsillectomy Additional Past Surgical History / Comment(s): wisdom teeth Past Anesthesia/Blood Transfusion Reactions: No Reported Reaction Past Psychological History: Anxiety Smoking Status: Former smoker Past Alcohol Use History: Occasional Past Drug Use History: None Reported - Past Family History Mother Family Medical History: No Reported History Additional Family Medical History / Comment(s): Degenerative disk disease General Exam Limitations: no limitations General appearance: alert, in no apparent distress Head exam: Present: atraumatic, normocephalic, normal inspection Eye exam: Present: normal appearance, EOMI Neck exam: Present: normal inspection. Absent: meningismus Respiratory exam: Absent: respiratory distress Cardiovascular Exam: Present: regular rate Right Lower Leg exam: Present: normal inspection, full ROM, tenderness. Absent: swelling, deformity Neurovascular tendon exam: Present: no vascular compromise Neurological exam: Present: alert, oriented X3 Psychiatric exam: Present: normal affect, normal mood Skin exam: Present: warm, dry, normal color Course Vital Signs 12/22/24 22:53 Temperature 97.7 F Pulse Rate 78 Respiratory 18 Rate Blood Pressure 127/86 O2 Sat by Pulse 98 Oximetry Medical Decision Making - Medical Decision Making Was pt. sent in by a medical professional or institution (, PA, EDUCATION COUNSELOR, urgent care, hospital, or fpc...) When possible be specific @ -No Did you speak to anyone other than the patient for history (EMS, parent, family, police, friend...)? What history was obtained from this source @ -No Did you review nursing and triage notes (agree or disagree)? Why? @ -I reviewed and agree with nursing and triage notes Were old charts reviewed (outside hosp., previous admission, EMS record, old EKG, old radiological studies, urgent care reports/EKG's, fpc records)? Report findings @ -No old charts were reviewed Differential Diagnosis (chest pain, altered mental status, abdominal pain women, abdominal pain men, vaginal bleeding, weakness, fever, dyspnea, syncope, headache, dizziness, GI bleed, back pain, seizure, CVA, palpatations, mental health, musculoskeletal)? @ -Differential Musculoskeletal Muscular strain, contusion, ligament sprain, fracture, arthritis, septic arthritis, bursitis, cellulitis, muscle spasm, nerve compression, DVT, arterial occlusion, herpes zoster, electrolyte abnormality, tumor.... This is not meant to be in all inclusive list EKG interpreted by me (3pts min.). @ -As above X-rays interpreted by me (1pt min.). @ -X-ray shows no acute osseous abnormality of the right tibia and fibula CT interpreted by me (1pt min.). @ -None done U/S interpreted by me (1pt. min.). @ -None done What testing was considered but not performed or refused? (CT, X-rays, U/S, labs)? Why? @ -None What meds were considered but not given or refused? Why? @ -None Did you discuss the management of the patient with other professionals (professionals i.e. , OFELIA, EDUCATION COUNSELOR, lab, RT, psych nurse, social welfare research worker, hand icer, teacher, intelligence officer basic, case management associate)? Give summary @ -No Was smoking cessation discussed for >3mins.? @ -No Was critical care preformed (if so, how long)? @ -No Were there social determinants of health that impacted care today? How? (Homelessness, low income, unemployed, alcoholism, drug addiction, transportation, low edu. Level, literacy, decrease access to med. care, halfway, rehab)? @ -No Was there de-escalation of care discussed even if they declined (Discuss DNR or withdrawal of care, Hospice)? DNR status @ -No What co-morbidities impacted this encounter? (DM, HTN, Smoking, COPD, CAD, Cancer, CVA, ARF, Chemo, Hep., AIDS, mental health diagnosis, sleep apnea, morbid obesity)? @ -None Was patient admitted / discharged? Hospital course, mention meds given and route, prescriptions, significant lab abnormalities, going to OR and other pertinent info. @ -34-year-old female presenting with chief complaint of right lower leg pain. She felt a pop when she was running this evening. History and physical examination are conducted. The patient is neurovascularly intact. X-ray is negative. Patient is provided with crutches, educated on supportive management, instructed to remain nonweightbearing, instructed to follow-up with orthopedics. Follow-up with PCP. Report back to ER with any new or worsening symptoms. Discussed return parameters and answered all questions. Patient conveyed verbal understanding and agreed to the plan. I discussed this case in detail with my attending Dr. Arthur Undiagnosed new problem with uncertain prognosis? @ -No Drug Therapy requiring intensive monitoring for toxicity (Heparin, Nitro, Insulin, Cardizem)? @ -No Were any procedures done? @ -No Diagnosis/symptom? @ -Calf muscle injury Acute, or Chronic, or Acute on Chronic? @ -Acute Uncomplicated (without systemic symptoms) or Complicated (systemic symptoms)? @ -Uncomplicated Side effects of treatment? @ -No Exacerbation, Progression, or Severe Exacerbation? @ -No Poses a threat to life or bodily function? How? (Chest pain, [place], [place], pneumonia, PE, COPD, DKA, ARF, appy, cholecystitis, CVA, Diverticulitis, Homicidal, Suicidal, threat to staff... and all critical care pts) @ -Unlikely Disposition Clinical Impression: Strain of calf muscle Disposition: HOME SELF-CARE Condition: Good Additional Instructions: Follow-up with PCP and orthopedics. Report back to ER with any new or worsening symptoms. Take Motrin Tylenol as needed for pain control. Rest, ice, compress, elevate the extremity. Use crutches and remain nonweightbearing. Is patient prescribed a controlled substance at d/c from ED?: No Referrals: Caleb Bruce MD [Primary Care Provider] - 1-2 days Jeffery Hanson MD [STAFF PHYSICIAN] - 1-2 days Time of Disposition: 23:54
== END 2024-12-23 00:16 | disposition home or self-care (01) ==
LOC: EC 22:48
DX: S86.911A Strain of unspecified muscle(s) and tendon(s) at lower leg level, right leg, initial encounter (principal); Z88.1 Allergy status to other antibiotic agents; Z88.2 Allergy status to sulfonamides; Z91.09 Other allergy status, other than to drugs and biological substances; Z87.891 Personal history of nicotine dependence; X50.9XXA Other and unspecified overexertion or strenuous movements or postures, initial encounter; Y93.02 Activity, running
CPT/HCPCS: 99283